=== PATIENT | female | born 1975 ===

== ENCOUNTER 2018-11-07 08:47 | Emergency (ER) | payer MEDICARE ==
[2018-11-07 08:59] VITALS: TEMP 98
[2018-11-07] MEDS ORDERED: Albuterol-Ipratrop 3 mg / 0.5 (3 ml) UD ONE ×2 (09:41→10:34)
[2018-11-07] MEDS ORDERED: Albuterol-Ipratrop 3 mg / 0.5 (3 ml) UD INH STA (09:43)
--- NOTE | 2018-11-07 10:29 | C.PDOC ---
History Of Present Illness 43 y/o female with a PMHx of asthma presents to the ED complaining of cough, congestion, wheezing, and chest tightness over the past 1 week. Associated with a headache, sore throat, ear pain, and intermittent fever. Patient reports taking Tylenol this morning. She has been using nebulizer machine and albuterol inhaler at home without significant relief. Otherwise she denies any dizziness, palpitations, nausea, vomiting, abdominal pain, or diarrhea. Patient reports she did receive a flu shot this year. Time Seen by Provider: 11/07/18 09:54 Chief Complaint (Nursing): Cough, Cold, Congestion History Per: Patient History/Exam Limitations: no limitations Onset/Duration Of Symptoms: Days Current Symptoms Are (Timing): Still Present Location Of Pain: Throat, Headache Associated Symptoms: Fever, Sore Throat, Cough, Nasal Congestion Past Medical History Reviewed: Historical Data, Nursing Documentation, Vital Signs Vital Signs: Last Vital Signs Temp 98 F 11/07/18 08:56 Pulse 102 H 11/07/18 08:56 Resp 22 11/07/18 08:56 BP 124/70 11/07/18 08:56 Pulse Ox 96 11/07/18 08:56 - Medical History PMH: Asthma Family History: States: No Known Family Hx - Social History Hx Alcohol Use: No Hx Substance Use: No - Immunization History Hx Influenza Vaccination: Yes Review Of Systems Except As Marked, All Systems Reviewed And Found Negative. Constitutional: Positive for: Fever ENT: Positive for: Ear Pain, Nose Congestion, Throat Pain Cardiovascular: Positive for: Chest Pain (tightness) Respiratory: Positive for: Cough, Shortness of Breath, Wheezing Gastrointestinal: Negative for: Nausea, Vomiting, Diarrhea Skin: Negative for: Rash Neurological: Positive for: Headache. Negative for: Weakness, Dizziness Physical Exam - Physical Exam Appears: Non-toxic, No Acute Distress Skin: Warm, Dry, No Rash Head: Atraumatic, Normacephalic Eye(s): bilateral: Normal Inspection, PERRL, EOMI Ear(s): Bilateral: Normal (no erythema) Nose: Normal, No Discharge Oral Mucosa: Moist Throat: Erythema (mild pharyngeal erythema), No Exudate Neck: Normal ROM, Supple Chest: Symmetrical Cardiovascular: Rhythm Regular, No Murmur Respiratory: No Accessory Muscle Use, Rhonchi (diffusely), Wheezing (bilaterally), Other (No respiratory distress) Gastrointestinal/Abdominal: Soft, No Tenderness, No Distention Extremity: Bilateral: Atraumatic, Normal Color And Temperature, Normal ROM Pulses: Left Radial: Normal, Right Radial: Normal Neurological/Psych: Oriented x3, Normal Speech ED Course And Treatment O2 Sat by Pulse Oximetry: 96 (RA) Pulse Ox Interpretation: Normal - Other Rad CXR X-Ray: Read By Radiologist Interpretation: Accession No. : [id number]. Patient Name / ID : LILIA FLORES N / [id number]. Exam Date : 11/07/2018 09:25:55 ( Approved ). Study Comment : Sex / Age : F / 43Y. Creator : Zenaida Porter MD. Dictator : Zenaida Porter MD. Ceiling Installer : Buckle Stapler : Zenaida Porter MD. Approver2 : Report Date : 11/07/2018 10:33:57. My Comment : . HISTORY: r/o pneumonia. COMPARISON: No prior. TECHNIQUE: Chest PA and lateral. FINDINGS: Examination limited by habitus and hypoinflation. LUNGS: Subtle patchy infiltrate at the left lung base may represent pneumonia. Please note that chest x-ray has limited sensitivity for the detection of pulmonary masses. PLEURA: No significant pleural effusion identified. No definite pneumothorax . CARDIOVASCULAR: Heart size appears within normal limits. No atherosclerotic calcification present. OSSEOUS STRUCTURES: Degenerative changes of the spine. VISUALIZED UPPER ABDOMEN: Unremarkable. OTHER FINDINGS: None. IMPRESSION: Subtle patchy infiltrate at the left lung base may represent pneumonia. Medical Decision Making Medical Decision Making: Impression: Cough, Wheezing, r/o PNA Plan: --Chest x-ray --Duoneb 3 ml INH --Peak flow pre/post neb 10:27 On re-evaluation, patient continues to complain of wheezing. Administered 2nd duoneb treatment, 60 mg PO prednisone, 10 mg Claritin PO, and 100mg tessalon perles PO. 11:23 On re-evaluation, patient continues to wheeze. Patient admits she already has tried taking leftover amoxicillin at home. 11:55 Patient reports feeling better, requesting to go home. On examination, lung sounds improved. No acute respiratory distress. Plan to discharge patient home, prescriptions provided. Counseled regarding diagnosis and follow-up instructions. Disposition Counseled Patient/Family Regarding: Studies Performed, Diagnosis, Need For Followup, Rx Given - Disposition Disposition: HOME/ ROUTINE Disposition Time: 11:58 Condition: STABLE Prescriptions: Amoxicillin/Clavulanate [Augmentin 875 MG-125 MG] 1 tab PO BID #14 tab Benzonatate [Tessalon Perles] 200 mg PO TID PRN #24 sgl PRN Reason: Cough Loratadine [Claritin] 10 mg PO DAILY #15 tab Prednisone [Deltasone] 60 mg PO DAILY #12 tablet Forms: General Discharge Instructions, [facility] (Guatemalan), Work Excuse - POA Present On Arrival: None - Clinical Impression Clinical Impression: Bronchitis, Asthma attack - Scribe Statement The provider has reviewed the documentation as recorded by the Joellen Juarez Provider Attestation: All medical record entries made by the Galinaibjarett were at my direction and personally dictated by me. I have reviewed the chart and agree that the record accurately reflects my personal performance of the history, physical exam, medical decision making, and the department course for this patient. I have also personally directed, reviewed, and agree with the discharge instructions and disposition.
[2018-11-07] MEDS: Albuterol-Ipratrop 3 mg / 0.5 (3 ml) UD IH SCH ×2 (10:32→10:49)
--- NOTE | 2018-11-07 10:38 | RAD ---
HISTORY: r/o pneumonia COMPARISON: No prior. TECHNIQUE: Chest PA and lateral FINDINGS: Examination limited by habitus and hypoinflation. LUNGS: Subtle patchy infiltrate at the left lung base may represent pneumonia. Please note that chest x-ray has limited sensitivity for the detection of pulmonary masses. PLEURA: No significant pleural effusion identified. No definite pneumothorax . CARDIOVASCULAR: Heart size appears within normal limits. No atherosclerotic calcification present. OSSEOUS STRUCTURES: Degenerative changes of the spine. VISUALIZED UPPER ABDOMEN: Unremarkable. OTHER FINDINGS: None. IMPRESSION: Subtle patchy infiltrate at the left lung base may represent pneumonia.
[2018-11-07 12:15] VITALS: BP 118/78; PULSE 83; RESP 16; O2SAT 98
== END 2018-11-07 12:15 | disposition home or self-care (01) ==
LOC: C.ER 08:47
DX: J45.909 Unspecified asthma, uncomplicated (principal)